=== PATIENT | female | born 1955 | race Caucasian/White ===

== ENCOUNTER 2018-07-10 05:28 | Inpatient (IN) | payer OTHER ==
[2018-06-26 12:46] LABS: HEMATOCRIT 37.2 % (37.0-47.0); HEMOGLOBIN 12.8 gm/dL (12.0-15.0); MCH 29.5 pg (26.0-34.0); MCHC 34.5 g/dL (28.0-37.0); MCV 85.5 fL (80.0-100.0); RBC 4.36 mil/uL (4.20-5.00); WBC 6.5 thou/uL (4.0-11.0)
[2018-06-26 12:58] LABS: PROTIME 10.7 Seconds (9.3-11.4)
[2018-06-26 13:01] LABS: ALBUMIN 4.4 g/dL (3.4-5.0); CALCIUM 9.8 mg/dL (8.5-10.1); POTASSIUM 3.8 mmol/L (3.5-5.1)
[2018-06-26 13:03] LABS: URINE BILIRUBIN NEGATIVE (Negative); URINE BLOOD TRACE (Negative); URINE CLARITY CLEAR; URINE COLOR YELLOW; URINE GLUCOSE-RANDOM* NEGATIVE (Negative); URINE KETONES NEGATIVE (Negative); URINE LEUKOCYTES-REFLEX NEGATIVE (Negative); URINE NITRITE-REFLEX NEGATIVE (Negative); URINE PROTEIN (DIPSTICK) NEGATIVE (Negative); URINE SPECIFIC GRAVITY >= 1.030 (1.005-1.035); URINE UROBILINOGEN 0.2 E.U./dl (0.2-1.0)
[~2018-07-10] VITALS: Ht 160 cm; Wt 93.4 kg
[~2018-07-10 05:28] MED LIST: ACYCLOVIR 400400 MG PO; ATORVASTATIN CA40 MG PO; CALCIUM + VITA1 EACH PO; CIPROFLOXACIN PO; DEMEROL50 MG PO; EMERGEN-C 1,01000 MG PO; GABAPENTIN 100100 MG PO; GLUCOSAMINE &1 EACH PO; HYDROCODON-ACE1 EAC8 PO; LOSARTAN-HCTZ1 EAC2 PO; MERREM1 GM IVPB; MOBIC15 MG PO; NORVASC5 MG PO; OXYCODONE-ACET1 EACH PO; PRILOSEC 20 MG20 MG PO; TRAMADOL 50 MG50 MG PO; ZOCOR40 MG PO; ZOFRAN ODT4 MG DISSOLVE
[2018-07-10 13:33] VITALS: BP 129/81
[2018-07-10 18:15] VITALS: BP 109/68
[2018-07-10 18:45] VITALS: BP 174/94
[2018-07-10 19:27] VITALS: BP 137/72
[2018-07-10 20:30] VITALS: BP 110/67
[2018-07-10 22:05] VITALS: BP 114/70
[2018-07-11 05:37] LABS: HEMATOCRIT 33.4 % (37.0-47.0); HEMOGLOBIN 11.4 gm/dL (12.0-15.0); MCH 29.5 pg (26.0-34.0); MCHC 34.1 g/dL (28.0-37.0); MCV 86.4 fL (80.0-100.0); RBC 3.87 mil/uL (4.20-5.00); WBC 9.2 thou/uL (4.0-11.0)
[2018-07-11 05:40] VITALS: BP 117/68
--- NOTE | 2018-07-11 06:25 | NUR ---
ASSESSMENT COMPLETED.DRSG ON HER R KNEE C/D/I.PT USES BEDPAN FOR ELIMINATION.LISA HOSE AND SCD IN PLACE.PAIN MANAGED WITH PO MED.IVF AND IV ABX INFUSING ORDERED.PT ABLE TO MAKE HER NEEDS KNOWN.CALL LIGHT WITHIN REACH.
[2018-07-11 07:44] VITALS: BP 113/67
[2018-07-11 10:27] VITALS: BP 113/67
--- NOTE | 2018-07-11 10:28 | NUR ---
Pt is s/p tk oa and progressing with therapy. Likely dc to home today with spouse. DC plan is for outpt therapy per the ortho office. Pt needs a FWW. [facility] deliever [facility] pt's room today. No other cm interventions indicated.
--- NOTE | 2018-07-11 11:20 | O ---
[facility] [place] [address] OPERATIVE REPORT Name: DAVONTE MILLER Room #: 429-P [facility] IN M.R.#: [id number] Admission: 07/10/18 ������������������ Attend Phys: Russ Gonzalez MD Discharge: ������������������ Date of : 55 Report #: [id number] THIS REPORT FOR: //name// CC: MARLO CHEEK Physician staff Russ Gonzalez DATE OF SERVICE: 07/10/2018 PREOPERATIVE DIAGNOSIS: Right knee osteoarthritis. POSTOPERATIVE DIAGNOSIS: Right knee osteoarthritis. PROCEDURE: Right total knee arthroplasty using [employer] robotic system. SURGEON: Russ Gonzalez MD TECHNICAL SOURCING RECRUITER: Angela Nettles PA-C INDICATIONS FOR TECHNICAL SOURCING RECRUITER: Throughout the case, extensive retraction and manipulation of the knee was required. This was afforded to me by my assistant professor of german. ANESTHESIA: LMA with an adductor canal block. IMPLANTS: [employer] size 6 Journey II BCS Oxinium femur, size 4 tibia, size 10 highly constrained polyethylene and a size 32 patella. TOURNIQUET TIME: 67 minutes. ESTIMATED BLOOD LOSS: 25 mL. COMPLICATIONS: None. SPECIMENS: None. CONDITION UPON LEAVING THE OPERATING ROOM: Stable. INDICATION FOR PROCEDURE: The patient is a 63-year-old female with severe right knee osteoarthritis. She had failed conservative measures for this and after discussion with her, she elected for right total knee arthroplasty. DESCRIPTION OF PROCEDURE: Risks, benefits, alternatives, complications were discussed in detail with the patient including but not limited to risk of anesthesia, risk of damage to nerves, arteries, blood vessels, risk for infection, bleeding, risk for continued knee pain and need for reoperation. Informed consent was obtained from the patient. The right knee was [facility] [address] [place] [address] OPERATIVE REPORT Name: DAVONTE MILLER Melecio Room #: 429-P [facility] IN M.R.#: [id number] Admission: 07/10/18 ������������������ Attend Phys: Russ Gonzalez MD Discharge: ������������������ Date of : 55 Report #: [id number] appropriately marked in the preoperative holding area. IV Ancef was given for preoperative antibiotics. Adductor canal block was placed by Anesthesia. She was brought to the Operating Room and placed in the supine position on the operating room table. LMA anesthesia was induced without complication. Tourniquet was placed on the right thigh. Right lower extremity was prepped and draped in normal sterile fashion. Timeout was performed properly identifying the patient and procedure as well as the instrumentation and implants, all in the Operating Room were in agreement. Right lower extremity was exsanguinated, tourniquet was inflated. Tourniquet time was 67 minutes. Standard midline approach to the knee was made with 10 blade through the skin. Dissection was taken down sharply to the fascia. Deep flaps were developed medially and laterally. Fresh 10 blade was used to make a medial parapatellar arthrotomy, and the knee was inspected. There was severe tricompartmental osteoarthritis. ACL and PCL were removed sharply. Osteophytes were removed with a rongeur. Reference pins were then placed in the femur and the tibia and the knee was visually mapped using the [employer] robotic system. Intraoperative plan was made and we sized the size 6 femur and a size 4 tibia with a size 10 polyethylene. After acceptance of the intraoperative plan, the distal femoral resection was made with a Navio bur. The cutting block for the size 6 femur was then pinned in place and the femoral cuts were made. Attention was turned to the tibia. The remainder of the menisci removed with Bovie cautery. The tibial resection guide was pinned in place using the [employer]Better system for placement of the resection guide. Tibial resection was made. After this, a medial osteophyte was removed from the tibia and flexion and extension gaps were checked and found to have good balance in flexion and extension both medially and laterally. The tibia was sized, found to be a size 4. Size 4 tibial trial was placed, pinned and punched. A size 6 femoral trial was placed and the box cut was made. This was then trialed with a size 9 and then a size 10 polyethylene. There was moderate laxity medially throughout range of motion and this was then trialed with a size 10 highly constrained polyethylene and found to have good balance in flexion and extension. 9 mm was taken off the posterior surface of the patella and a size 32 patellar trial button was placed. The knee was taken through range of motion, found to be stable, found to have good patellar tracking. After this, trial components were removed. Bony ends were thoroughly irrigated with normal saline. A final size 4 tibia, size 6 Journey II BCS Oxinium femur and a size 32 patella were cemented in place using standard cementation techniques. While the cement cured, a periarticular injection consisting of morphine, ropivacaine, epinephrine, Toradol was placed around the knee joint capsule. After the cement cured, the tourniquet was deflated. Hemostasis was obtained with Bovie cautery. A final size 10 highly constrained polyethylene was placed. A gram of vancomycin was placed deep in the joint. The fascia was closed with 0 Vicryl, skin was closed with 2-0 Vicryl, 3-0 Monocryl. Dermabond and a SLOANE dressing [address] [address] OPERATIVE REPORT Name: DAVONTE MILLER Room #: 429-P [facility] IN .R.#: [id number] Admission: 07/10/18 ������������������ Attend Phys: Russ Gonzalez MD Discharge: ������������������ Date of : 55 Report #: [id number] was applied. The patient tolerated this procedure well and went to the recovery room under the care of Anesthesia postoperatively. ��������������������������������������������� <ELECTRONICALLY SIGNED> ���������������������������������������� By: Russ Gonzalez MD ��������������������������������������������� 07/11/18 1120 [id number] Russ Gonzalez MD /nt
[2018-07-11] MEDS ORDERED: TRI-BUFFERED A325 M1 PO (11:48)
[2018-07-11 12:05] VITALS: BP 113/67
[2018-07-11 16:27] VITALS: BP 113/67
--- NOTE | 2018-07-11 19:24 | NUR ---
Pt in and out of bed for activities.Assessment completed.vss.Pt tolerated meds and diet.Abraham wrap with surgical drsg to right knee intact with polar pack. Medicated pt twice prior to therapy.Angela here early this am and said pt will dc home later this evening if approved by janelle.Later called back and ok pt dc home per therapist recommendation.Dc summary completed and reviewed with pt and spouse.At 1757,pt dc home per wc accompanied by spouse.
== END 2018-07-11 17:56 | disposition home or self-care (01) | DRG 470 ==
LOC: TBA 05:28 → 4E 05:28 → PRE 05:54 → OR 08:45 → EDSTATUS 08:49 → PRE 08:55 → 4E 18:31 → ENTRNSPT 07-11 16:42 → 4E 07-11 17:56
PROVIDERS: ADMIT Orthopaedic Surgery
DX: M17.11 Unilateral primary osteoarthritis, right knee (principal); I10 Essential (primary) hypertension; Z96.653 Presence of artificial knee joint, bilateral; Z88.6 Allergy status to analgesic agent; Z85.028 Personal history of other malignant neoplasm of stomach; Z85.830 Personal history of malignant neoplasm of bone; Z82.49 Family history of ischemic heart disease and other diseases of the circulatory system; Z81.1 Family history of alcohol abuse and dependence
CPT/HCPCS: 10783; 50010; 50101; 50415; 50954; 51130; 51225; 51320; 52001; 52282; 53000; 53078; 54118; 55372; 56527; 56528; 57095; 57103; 57109; 57110; 57113; 57127; 57180; 62110; 62900; 64042; 70005